=== PATIENT | female | born 1985 | race Caucasian/White ===

== ENCOUNTER 2016-12-29 08:47 | Outpatient (CLI) | payer OTHER | END 2016-12-29 09:51 | disposition home or self-care (01) | LOC: MW.OBCHECK 08:47 → MW.OB 09:00 | CPT/HCPCS: 99282; 99283 ==

== ENCOUNTER 2016-12-29 09:49 | Emergency (ER) | payer OTHER ==
--- NOTE | 2016-12-29 10:04 | EDM.PDOC ---
ED HPI GENERAL MEDICAL PROBLEM - General Chief Complaint: SONG AND DANCE PERFORMER Problem Stated Complaint: PAIN Time Seen by Provider: 12/29/16 09:55 - History of Present Illness INITIAL COMMENTS - FREE TEXT/NARRATIVE: HISTORY AND PHYSICAL: History of present illness: Patient is a 31-year-old white female is approximately 20 weeks with history chronic abdominal pain she's been seen by her SONG AND DANCE PERFORMER for this she is currently on narcotic analgesics for pain she was evaluated and cleared up in labor and delivery and sent back to the emergency department for pain management I discussed with patient at length the limitations in the context of her and that pain management needs to be managed in coordination with her OB doctor to discuss case with who agrees with disposition home and follow up in the office tomorrow Review of systems: As per history of present illness and below otherwise all systems reviewed and negative. Past medical history: As per history of present illness and as reviewed below otherwise noncontributory. Surgical history: As per history of present illness and as reviewed below otherwise noncontributory. Social history: No reported history of drug or alcohol abuse. Family history: As per history of present illness and as reviewed below otherwise noncontributory. Physical exam: HEENT: Atraumatic, normocephalic, pupils reactive, negative for conjunctival pallor or scleral icterus, mucous membranes moist, throat clear, neck supple, nontender, trachea midline. Lungs: Clear to auscultation, breath sounds equal bilaterally, chest nontender. Heart: S1S2, regular, negative for clicks, rubs, or JVD. Abdomen: Soft, nondistended, no localized tenderness in consistent with dates. Negative for masses or hepatosplenomegaly. Negative for costovertebral tenderness. Pelvis: Stable nontender. Genitourinary: Deferred. Rectal: Deferred. Extremities: Atraumatic, negative for cords or calf pain. Neurovascular unremarkable. Neuro: Awake, alert, oriented. Cranial nerves II through XII unremarkable. Cerebellum unremarkable. Motor and sensory unremarkable throughout. Exam nonfocal. Diagnostics: None Therapeutics: None Impression: #1 20 week intrauterine #2 chronic abdominal pain Definitive disposition and diagnosis as appropriate pending reevaluation and review of above. Abdominal Pain Score (Numeric/FACES): 10 - Related Data Allergies Allergy/AdvReac Type Severity Reaction Status Date / Time Latex, Natural Rubber Allergy Itching Verified 12/29/16 09:54 Home Meds: Home Meds Pnv No.122/Iron/Folic Acid [ Multi Tablet] 1 each PO DAILY 10/14/16 [ History] oxyCODONE HCl/Acetaminophen [Percocet 7.5-325 mg Tablet] 1 each PO Q6H PRN #30 tablet 12/15/16 [Rx] Past Medical History HEENT History: Reports: None Gastrointestinal History: Reports: None SONG AND DANCE PERFORMER History: Reports: Polycystic Ovaries Endocrine/Metabolic History: Reports: Obesity/BMI 30+ - Infectious Disease History Infectious Disease History: Reports: Chicken pox - Past Surgical History HEENT Surgical History: Reports: Tonsillectomy GI Surgical History: Reports: Cholecystectomy Other GI Surgeries/Procedures: partial cholecystectomy Female Surgical History: Reports: Other (see below) Other Female Surgeries/Procedures: PCOS Social & Family History - Family History Family Medical History: Noncontributory Respiratory: Reports: Asthma : Reports: UTI, recurrent Musculoskeletal: Reports: Other (see below) Other Musculoskeletal Family History: muscular dystrophy Endocrine/Metabolic: Reports: Diabetes, type II - Tobacco Use Smoking Status *Q: Never Smoker - Caffeine Use Caffeine Use: Reports: Coffee Caffeine Use Comment: 0.5 cup/day - Recreational Drug Use Recreational Drug Use: No ED ROS GENERAL - Review of Systems Review Of Systems: ROS reveals no pertinent complaints other than HPI. ED EXAM, GENERAL - Physical Exam Exam: See Below (See dictation) Course - Vital Signs Last Recorded V/S: Last Vital Signs Temp 36.3 C 12/29/16 09:54 Pulse 107 H 12/29/16 09:54 Resp 22 H 12/29/16 09:54 BP 120/87 12/29/16 09:54 Pulse Ox 97 12/29/16 09:54 Departure - Departure Time of Disposition: 10:02 Disposition: Home, Self-Care 01 Condition: good Clinical Impression: Second trimester , Chronic abdominal pain Forms: ED Department Discharge Additional Instructions: The following information is given to patients seen in the emergency department who are being discharged to home. This information is to outline your options for follow-up care. We provide all patients seen in our emergency department with a follow-up referral. The need for follow-up, as well as the timing and circumstances, are variable depending upon the specifics of your emergency department visit. If you don't have a primary care physician on staff, we will provide you with a referral. We always advise you to contact your personal physician following an emergency department visit to inform them of the circumstance of the visit and for follow-up with them and/or the need for any referrals to a consulting specialist. The emergency department will also refer you to a specialist when appropriate. This referral assures that you have the opportunity for followup care with a specialist. All of these measure are taken in an effort to provide you with optimal care, which includes your followup. Under all circumstances we always encourage you to contact your private physician who remains a resource for coordinating your care. When calling for followup care, please make the office aware that this follow-up is from your recent emergency room visit. If for any reason you are refused follow-up, please contact the [facility] emergency department at and asked to speak to the emergency department charge nurse. Followup OB ell teacher tomorrow as discussed return as needed as discussed
== END 2016-12-29 10:17 | disposition home or self-care (01) ==
LOC: MW.ED 09:49
CPT/HCPCS: 99282; 99283

== ENCOUNTER 2016-12-30 10:50 | Inpatient (IN) | payer OTHER ==
--- NOTE | 2016-12-30 11:07 | EDM.PDOC ---
ED HPI GENERAL MEDICAL PROBLEM - General Chief Complaint: OB TECH Problem Stated Complaint: PAIN Time Seen by Provider: 12/30/16 11:59 - History of Present Illness INITIAL COMMENTS - FREE TEXT/NARRATIVE: HISTORY AND PHYSICAL: History of present illness: Patient is a 31-year-old white female is approximately 20 weeks history chronic abdominal pain that was seen yesterday in the emergency department has had multiple visits to her private doctor who has been prescribed narcotic analgesics that she takes every 6 hours for this chronic pain she is known to have an ovarian cyst this case was discussed yesterday with her OB subassembly assembler who is here today in the office she presents now via paramedics with abdominal pain Review of systems: As per history of present illness and below otherwise all systems reviewed and negative. Past medical history: As per history of present illness and as reviewed below otherwise noncontributory. Surgical history: As per history of present illness and as reviewed below otherwise noncontributory. Social history: No reported history of drug or alcohol abuse. Family history: As per history of present illness and as reviewed below otherwise noncontributory. Physical exam: HEENT: Atraumatic, normocephalic, pupils reactive, negative for conjunctival pallor or scleral icterus, mucous membranes moist, throat clear, neck supple, nontender, trachea midline. Lungs: Clear to auscultation, breath sounds equal bilaterally, chest nontender. Heart: S1S2, regular, negative for clicks, rubs, or JVD. Abdomen: Soft, nondistended, no localized tenderness. Negative for masses or hepatosplenomegaly. Negative for costovertebral tenderness. Pelvis: Stable nontender. Genitourinary: Deferred. Rectal: Deferred. Extremities: Atraumatic, negative for cords or calf pain. Neurovascular unremarkable. Neuro: Awake, alert, oriented. Cranial nerves II through XII unremarkable. Cerebellum unremarkable. Motor and sensory unremarkable throughout. Exam nonfocal. Diagnostics: CBC CMP lipase UA pelvic ultrasound Therapeutics: Normal saline 1 L bolus Impression: #1 20 week intrauterine #2 chronic abdominal pain Definitive disposition and diagnosis as appropriate pending reevaluation and review of above. Pelvic Pain Score (Numeric/FACES): 10 - Related Data Allergies Allergy/AdvReac Type Severity Reaction Status Date / Time Latex, Natural Rubber Allergy Itching Verified 12/29/16 09:54 Home Meds: Home Meds Pnv No.122/Iron/Folic Acid [ Multi Tablet] 1 each PO DAILY 10/14/16 [ History] oxyCODONE HCl/Acetaminophen [Percocet 7.5-325 mg Tablet] 1 each PO Q6H PRN #30 tablet 12/15/16 [Rx] Past Medical History HEENT History: Reports: None Gastrointestinal History: Reports: None Genitourinary History: Reports: None OB TECH History: Reports: Polycystic Ovaries Musculoskeletal History: Reports: None Neurological History: Reports: None Psychiatric History: Reports: None Endocrine/Metabolic History: Reports: Obesity/BMI 30+ Hematologic History: Reports: None Immunologic History: Reports: None Oncologic (Cancer) History: Reports: None Dermatologic History: Reports: None - Infectious Disease History Infectious Disease History: Reports: Chicken pox - Past Surgical History HEENT Surgical History: Reports: Tonsillectomy GI Surgical History: Reports: Cholecystectomy Other GI Surgeries/Procedures: partial cholecystectomy Female Surgical History: Reports: Other (see below) Other Female Surgeries/Procedures: PCOS Social & Family History - Family History Family Medical History: Noncontributory Respiratory: Reports: Asthma : Reports: UTI, recurrent Musculoskeletal: Reports: Other (see below) Other Musculoskeletal Family History: muscular dystrophy Endocrine/Metabolic: Reports: Diabetes, type II - Tobacco Use Smoking Status *Q: Never Smoker Second Hand Smoke Exposure: No - Caffeine Use Caffeine Use: Reports: Coffee Caffeine Use Comment: 0.5 cup/day - Recreational Drug Use Recreational Drug Use: No ED ROS GENERAL - Review of Systems Review Of Systems: ROS reveals no pertinent complaints other than HPI. ED EXAM, GENERAL - Physical Exam Exam: See Below (See dictation) Course - Vital Signs Last Recorded V/S: Last Vital Signs Temp 36.7 C 12/30/16 10:55 Pulse 115 H 12/30/16 10:55 Resp 28 H 12/30/16 10:55 BP 128/88 12/30/16 10:55 Pulse Ox 100 12/30/16 10:55 - Orders/Labs/Meds Orders: Active Orders 24 hr Category Date Time Status AMYLASE [CHEM] Stat Lab 12/30/16 11:07 Received COMPREHENSIVE METABOLIC PN,CMP [CHEM] Stat Lab 12/30/16 11:07 Received LIPASE [CHEM] Stat Lab 12/30/16 11:07 Received TYPE AND SCREEN [BBK] Stat Lab 12/30/16 11:48 Ordered Labs: Laboratory Tests 12/30/16 Range/Units 11:07 WBC 8.94 (4.0-11.0) K/uL RBC 4.42 (4.30-5.90) M/uL Hgb 12.1 (12.0-16.0) g/dL Hct 36.0 (36.0-46.0) % MCV 81.4 (80.0-98.0) fL MCH 27.4 (27.0-32.0) pg MCHC 33.6 (31.0-37.0) g/dL RDW Std Deviation 42.1 (28.0-62.0) fl RDW Coeff of Jennifer 14 (11.0-15.0) % Plt Count 268 (150-400) K/uL MPV 10.00 (7.40-12.00) fL Neut % (Auto) 76.4 (48.0-80.0) % Lymph % (Auto) 16.0 (16.0-40.0) % [place] % (Auto) 7.2 (0.0-15.0) % Eos % (Auto) 0.3 (0.0-7.0) % Baso % (Auto) 0.1 (0.0-1.5) % Neut # 6.8 H (1.4-5.7) K/uL Lymph # 1.4 (0.6-2.4) K/uL [place] # 0.6 (0.0-0.8) K/uL Eos # 0.0 (0.0-0.7) K/uL Baso # 0.0 (0.0-0.1) K/uL Nucleated RBC % 0.0 /100WBC Nucleated RBCs # 0 K/uL Meds: Medications Discontinued Medications Generic Name Dose Route Start Last Admin Trade Name Freq PRN Reason Stop Dose Admin Morphine Sulfate 8 mg 12/30/16 11:44 12/30/16 11:49 Morphine IVPUSH 12/30/16 11:45 8 mg ONETIME ONE Administration Departure - Departure Time of Disposition: 11:59 Disposition: Admitted As Inpatient 66 Condition: good Clinical Impression: Second trimester , Ovarian cyst Forms: ED Department Discharge - My Orders Last 24 Hours: My Active Orders 12/30/16 11:07 AMYLASE [CHEM] Stat COMPREHENSIVE METABOLIC PN,CMP [CHEM] Stat LIPASE [CHEM] Stat 12/30/16 11:48 TYPE AND SCREEN [BBK] Stat - Assessment/Plan Last 24 Hours: My Active Orders 12/30/16 11:07 AMYLASE [CHEM] Stat COMPREHENSIVE METABOLIC PN,CMP [CHEM] Stat LIPASE [CHEM] Stat 12/30/16 11:48 TYPE AND SCREEN [BBK] Stat
[2016-12-30] MEDS ORDERED: Morphine 10 MG/ML Syringe IVPUSH ONE (11:44)
[2016-12-30 11:57] LABS: CHLORIDE,CL 111 mmol/L (98-110); SODIUM,NA 136 mmol/L (136-146)
--- NOTE | 2016-12-30 11:57 | US ---
EXAMINATION: Transabdominal pelvic ultrasound HISTORY: Ovarian cysts COMPARISON: 12/15/2016 TECHNIQUE: Grayscale, color Doppler, and spectral Doppler images obtained transabdominally. FINDINGS: There is a single live intrauterine with a heart rate of 147 bpm. The placenta i s anterior. The fetus is in a cephalic position. Within the left lower quadrant again multiple hypoe choic cysts are noted measuring up to 9 x 10 cm. Grossly unchanged in comparison to the previous ult rasound. IMPRESSION: 1. Single live intrauterine . 2. Several stable prominent left adnexal cysts measuring up to 10 cm.
[2016-12-30] MEDS ORDERED: Ondansetron 4 MG/2 ML SDV IVPUSH ONE (13:45)
[2016-12-30] MEDS ORDERED: Morphine 4 MG/ML Syringe IVPUSH PRN (13:45)
--- NOTE | 2016-12-30 13:57 | PCM.PREANE ---
Preanesthetic Assessment - ANESTHESIA/TRANSFUSION/FAMILY HX Anesthesia/Transfusion History: Prior Anesthesia Family History of Anesthesia Reaction: No Intubation History: Unknown Additional History: Several weeks of pain worsening last few days due to ovarian cyst(s) with possible torsion due to her presentation today. 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 Respiratory: Reports: no symptoms Cardiovascular: Reports: no symptoms GI: Reports: no symptoms Other: Reports: none - PHYSICAL ASSESSMENT O2 Sat by Pulse Oximetry: 98 RR: 16 Vital Signs: Last Vital Signs Temp 98.0 F 12/30/16 10:55 Pulse 78 12/30/16 12:59 Resp 16 12/30/16 12:59 BP 120/70 12/30/16 12:10 Pulse Ox 98 12/30/16 12:59 Height: 5 ft 4.17 in Weight: 310 lb 13.628 oz - LAB Values: Laboratory Last Values WBC 8.94 K/uL (4.0-11.0) 12/30/16 11:07 RBC 4.42 M/uL (4.30-5.90) 12/30/16 11:07 Hgb 12.1 g/dL (12.0-16.0) 12/30/16 11:07 Hct 36.0 % (36.0-46.0) 12/30/16 11:07 MCV 81.4 fL (80.0-98.0) 12/30/16 11:07 MCH 27.4 pg (27.0-32.0) 12/30/16 11:07 MCHC 33.6 g/dL (31.0-37.0) 12/30/16 11:07 RDW Std Deviation 42.1 fl (28.0-62.0) 12/30/16 11:07 RDW Coeff of Jennifer 14 % (11.0-15.0) 12/30/16 11:07 Plt Count 268 K/uL (150-400) 12/30/16 11:07 MPV 10.00 fL (7.40-12.00) 12/30/16 11:07 Neut % (Auto) 76.4 % (48.0-80.0) 12/30/16 11:07 Lymph % (Auto) 16.0 % (16.0-40.0) 12/30/16 11:07 [place] % (Auto) 7.2 % (0.0-15.0) 12/30/16 11:07 Eos % (Auto) 0.3 % (0.0-7.0) 12/30/16 11:07 Baso % (Auto) 0.1 % (0.0-1.5) 12/30/16 11:07 Neut # 6.8 K/uL (1.4-5.7) H 12/30/16 11:07 Lymph # 1.4 K/uL (0.6-2.4) 12/30/16 11:07 [place] # 0.6 K/uL (0.0-0.8) 12/30/16 11:07 Eos # 0.0 K/uL (0.0-0.7) 12/30/16 11:07 Baso # 0.0 K/uL (0.0-0.1) 12/30/16 11:07 Nucleated RBC % 0.0 /100WBC 12/30/16 11:07 Nucleated RBCs # 0 K/uL 12/30/16 11:07 Sodium 136 mmol/L (136-146) 12/30/16 11:07 Potassium 3.8 mmol/L (3.5-5.1) 12/30/16 11:07 Chloride 111 mmol/L (98-110) H 12/30/16 11:07 Carbon Dioxide 13 mmol/L (21-31) L 12/30/16 11:07 BUN 5 mg/dL (6.0-23.0) L 12/30/16 11:07 Creatinine 0.6 mg/dL (0.6-1.5) 12/30/16 11:07 Est Cr Clr Drug Dosing 118.17 mL/min 12/30/16 11:07 Estimated GFR (MDRD) > 60.0 ml/min 12/30/16 11:07 Glucose 135 mg/dL (60-110) H 12/30/16 11:07 Calcium 9.2 mg/dL (8.8-10.8) 12/30/16 11:07 Total Bilirubin 0.3 mg/dL (0.1-1.5) 12/30/16 11:07 AST 11 IU/L (5-40) 12/30/16 11:07 ALT 13 IU/L (8-54) 12/30/16 11:07 Alkaline Phosphatase 54 (40-150) 12/30/16 11:07 Total Protein 7.0 g/dL (6.0-8.0) 12/30/16 11:07 Albumin 3.5 g/dL (3.5-5.0) 12/30/16 11:07 Globulin 3.5 g/dL (2.0-3.5) 12/30/16 11:07 Albumin/Globulin Ratio 1.0 (1.3-2.8) L 12/30/16 11:07 Amylase 37 U/L (10-90) 12/30/16 11:07 Lipase 22 U/L (7-80) 12/30/16 11:07 Blood Type AB POSITIVE 12/30/16 11:59 Antibody Screen NEGATIVE 12/30/16 11:59 - ALLERGIES Allergies/Adverse Reactions: Allergies Allergy/AdvReac Type Severity Reaction Status Date / Time Latex, Natural Rubber Allergy Itching Verified 12/29/16 09:54 PreAnesthesia Questionnaire HEENT History: Reports: None Cardiovascular History: Reports: None Respiratory History: Reports: None Gastrointestinal History: Reports: None Genitourinary History: Reports: None Other Genitourinary History: Ovarian cysts 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: Reports: Polycystic Ovaries Musculoskeletal History: Reports: None Neurological History: Reports: None Psychiatric History: Reports: None Endocrine/Metabolic History: Reports: Obesity/BMI 30+ Hematologic History: Reports: None Immunologic History: Reports: None Oncologic (Cancer) History: Reports: None Dermatologic History: Reports: None - Infectious Disease History Infectious Disease History: Reports: Chicken pox - Past Surgical History HEENT Surgical History: Reports: Tonsillectomy GI Surgical History: Reports: Cholecystectomy Other GI Surgeries/Procedures: partial cholecystectomy Female Surgical History: Reports: Other (see below) Other Female Surgeries/Procedures: PCOS - SUBSTANCE USE Smoking Status *Q: Never Smoker Second Hand Smoke Exposure: No Recreational Drug Use History: No - HOME MEDS Home Medications: Home Meds Pnv No.122/Iron/Folic Acid [ Multi Tablet] 1 each PO DAILY 10/14/16 [ History] oxyCODONE HCl/Acetaminophen [Percocet 7.5-325 mg Tablet] 1 each PO Q6H PRN #30 tablet 12/15/16 [Rx] - CURRENT (IN HOUSE) MEDS Current Meds: Current Medications Morphine Sulfate (Morphine) 5 mg IVPUSH Q4H PRN PRN Reason: Pain Ondansetron HCl (Zofran) 4 mg IVPUSH ONETIME ONE Stop: 12/30/16 13:46 Discontinued Medications Morphine Sulfate (Morphine) 8 mg IVPUSH ONETIME ONE Stop: 12/30/16 11:45 Last Admin: 12/30/16 11:49 Dose: 8 mg
--- NOTE | 2016-12-30 14:01 | PCM.PREANE ---
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: no symptoms Respiratory: Reports: no symptoms Cardiovascular: Reports: no symptoms GI: Reports: no symptoms Other: Reports: none - PHYSICAL ASSESSMENT O2 Sat by Pulse Oximetry: 98 RR: 16 Vital Signs: Last Vital Signs Temp 98.0 F 12/30/16 10:55 Pulse 78 12/30/16 12:59 Resp 16 12/30/16 13:57 BP 120/70 12/30/16 12:10 Pulse Ox 98 12/30/16 13:57 Height: 5 ft 4.17 in Weight: 310 lb 13.628 oz ASA Class: 3E Mental Status: alert & oriented x3 Airway Class: Mallampati = 1 Dentition: Reports: normal dentition Thyro-Mental Finger Breadths: 3 Mouth Opening Finger Breadths: 3 ROM/Head Extension: full Respiratory Status: lungs clear to auscultation bilaterally Cardiovascular Status: regular rate & rhythm, no murmur, blood pressure WNL - LAB Values: Laboratory Last Values WBC 8.94 K/uL (4.0-11.0) 12/30/16 11:07 RBC 4.42 M/uL (4.30-5.90) 12/30/16 11:07 Hgb 12.1 g/dL (12.0-16.0) 12/30/16 11:07 Hct 36.0 % (36.0-46.0) 12/30/16 11:07 MCV 81.4 fL (80.0-98.0) 12/30/16 11:07 MCH 27.4 pg (27.0-32.0) 12/30/16 11:07 MCHC 33.6 g/dL (31.0-37.0) 12/30/16 11:07 RDW Std Deviation 42.1 fl (28.0-62.0) 12/30/16 11:07 RDW Coeff of Jennifer 14 % (11.0-15.0) 12/30/16 11:07 Plt Count 268 K/uL (150-400) 12/30/16 11:07 MPV 10.00 fL (7.40-12.00) 12/30/16 11:07 Neut % (Auto) 76.4 % (48.0-80.0) 12/30/16 11:07 Lymph % (Auto) 16.0 % (16.0-40.0) 12/30/16 11:07 [place] % (Auto) 7.2 % (0.0-15.0) 12/30/16 11:07 Eos % (Auto) 0.3 % (0.0-7.0) 12/30/16 11:07 Baso % (Auto) 0.1 % (0.0-1.5) 12/30/16 11:07 Neut # 6.8 K/uL (1.4-5.7) H 12/30/16 11:07 Lymph # 1.4 K/uL (0.6-2.4) 12/30/16 11:07 [place] # 0.6 K/uL (0.0-0.8) 12/30/16 11:07 Eos # 0.0 K/uL (0.0-0.7) 12/30/16 11:07 Baso # 0.0 K/uL (0.0-0.1) 12/30/16 11:07 Nucleated RBC % 0.0 /100WBC 12/30/16 11:07 Nucleated RBCs # 0 K/uL 12/30/16 11:07 Sodium 136 mmol/L (136-146) 12/30/16 11:07 Potassium 3.8 mmol/L (3.5-5.1) 12/30/16 11:07 Chloride 111 mmol/L (98-110) H 12/30/16 11:07 Carbon Dioxide 13 mmol/L (21-31) L 12/30/16 11:07 BUN 5 mg/dL (6.0-23.0) L 12/30/16 11:07 Creatinine 0.6 mg/dL (0.6-1.5) 12/30/16 11:07 Est Cr Clr Drug Dosing 118.17 mL/min 12/30/16 11:07 Estimated GFR (MDRD) > 60.0 ml/min 12/30/16 11:07 Glucose 135 mg/dL (60-110) H 12/30/16 11:07 Calcium 9.2 mg/dL (8.8-10.8) 12/30/16 11:07 Total Bilirubin 0.3 mg/dL (0.1-1.5) 12/30/16 11:07 AST 11 IU/L (5-40) 12/30/16 11:07 ALT 13 IU/L (8-54) 12/30/16 11:07 Alkaline Phosphatase 54 (40-150) 12/30/16 11:07 Total Protein 7.0 g/dL (6.0-8.0) 12/30/16 11:07 Albumin 3.5 g/dL (3.5-5.0) 12/30/16 11:07 Globulin 3.5 g/dL (2.0-3.5) 12/30/16 11:07 Albumin/Globulin Ratio 1.0 (1.3-2.8) L 12/30/16 11:07 Amylase 37 U/L (10-90) 12/30/16 11:07 Lipase 22 U/L (7-80) 12/30/16 11:07 Blood Type AB POSITIVE 12/30/16 11:59 Antibody Screen NEGATIVE 12/30/16 11:59 - ALLERGIES Allergies/Adverse Reactions: Allergies Allergy/AdvReac Type Severity Reaction Status Date / Time Latex, Natural Rubber Allergy Itching Verified 12/29/16 09:54 - BLOOD Blood Available: No - ANESTHESIA PLAN Free Text/Narrative:: Laparoscopy: will need general anesthetic; risks and benefits discussed by me and by Dr. Wilks earlier....she was admitted through the ER...see evaluation. 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: Polycystic Ovaries Musculoskeletal History: Reports: None Neurological History: Reports: None Psychiatric History: Reports: None Endocrine/Metabolic History: Reports: Obesity/BMI 30+ Hematologic History: Reports: None Immunologic History: Reports: None Oncologic (Cancer) History: Reports: None Dermatologic History: Reports: None - Infectious Disease History Infectious Disease History: Reports: Chicken pox - Past Surgical History HEENT Surgical History: Reports: Tonsillectomy GI Surgical History: Reports: Cholecystectomy Other GI Surgeries/Procedures: partial cholecystectomy Female Surgical History: Reports: Other (see below) Other Female Surgeries/Procedures: PCOS - SUBSTANCE USE Smoking Status *Q: Never Smoker Second Hand Smoke Exposure: No Recreational Drug Use History: No - HOME MEDS Home Medications: Home Meds Pnv No.122/Iron/Folic Acid [ Multi Tablet] 1 each PO DAILY 10/14/16 [ History] oxyCODONE HCl/Acetaminophen [Percocet 7.5-325 mg Tablet] 1 each PO Q6H PRN #30 tablet 12/15/16 [Rx] - CURRENT (IN HOUSE) MEDS Current Meds: Current Medications Morphine Sulfate (Morphine) 5 mg IVPUSH Q4H PRN PRN Reason: Pain Discontinued Medications Morphine Sulfate (Morphine) 8 mg IVPUSH ONETIME ONE Stop: 12/30/16 11:45 Last Admin: 12/30/16 11:49 Dose: 8 mg Ondansetron HCl (Zofran) 4 mg IVPUSH ONETIME ONE Stop: 12/30/16 13:46
[2016-12-30] MEDS ORDERED: Rocuronium 10 MG/ML 10 ML Syringe ONE (14:16)
[2016-12-30] MEDS ORDERED: fentaNYL 100 MCG/2 ML SDV ONE ×3 (14:16→16:45)
[2016-12-30] MEDS ORDERED: Propofol 200 MG/20 ML SDV ONE (14:16)
[2016-12-30] MEDS ORDERED: Lidocaine 2% 5 ML SDV ONE (14:16)
[2016-12-30] MEDS ORDERED: ePHEDrine 50 MG/ML SDV ONE (15:03)
[2016-12-30] MEDS ORDERED: Phenylephrine/Normal Saline 100 MCG/ML 10 ML Syringe ONE (15:03)
[2016-12-30] MEDS ORDERED: Morphine 10 MG/ML Syringe ONE (15:23)
[2016-12-30] MEDS ORDERED: Phenylephrine 1% 10 MG/ML SDV ONE (15:26)
[2016-12-30] MEDS ORDERED: Neostigmine Methylsulfate 1 MG/ML 5 ML Syringe ONE (15:52)
[2016-12-30] MEDS ORDERED: Ondansetron 4 MG/2 ML SDV ONE (16:02)
[2016-12-30] MEDS ORDERED: Octyl 2-Cyanoacrylate 1 Tube ONE (16:06)
[2016-12-30] MEDS ORDERED: Ketorolac 30 MG/ML SDV IVPUSH PRN (16:20)
[2016-12-30] MEDS ORDERED: Ketorolac 30 MG/ML SDV IVPUSH ONE (16:20)
[2016-12-30] MEDS ORDERED: Promethazine 25 MG/ML SDV IM PRN (16:20)
--- NOTE | 2016-12-30 17:15 | PCM.POSTAN ---
POST ANESTHESIA ASSESSMENT - MENTAL STATUS Mental Status: alert (Pt currently resting quietly, not appearing to be in pain. Does report pain when awake. Has been given substantial doses of morphine (18 mg) and fentanyl (300 mcg) over past 2 hours. Will transfer to floor now. Dr. Wilks to manage pain control while in hospital.), oriented - RESPIRATORY Respiratory Status: respiratory rate WNL, airway patent, O2 saturation stable - CARDIOVASCULAR CV Status: pulse rate WNL, blood pressure stable - GASTROINTESTINAL GI Status: no symptoms - POST OP HYDRATION Hydration Status: adequate & stable
[2016-12-30] MEDS: Morphine 4 MG/ML Syringe IVPUSH PRN (18:40)
--- NOTE | 2016-12-30 20:44 | PCM48HPAN ---
Post Anesthesia Note - EVALUATION WITHIN 48HRS OF ANESTHETIC Vital Signs in Normal Range: Yes Patient Participated in Evaluation: Yes Respiratory Function Stable: Yes Airway Patent: Yes Cardiovascular Function Stable: Yes Hydration Status Stable: Yes Pain Control Satisfactory: Yes Nausea and Vomiting Control Satisfactory: Yes Mental Status Recovered: Yes - COMMENTS/OBSERVATIONS Free Text/Narrative:: Pt denies problems with anesthetic. Does report incisional pain. Dr. Wilks managing pain during inpatient stay.
[2016-12-30] MEDS: Acetaminophen/oxyCODONE 325-5 MG Tab PO PRN (22:51)
[2016-12-31] MEDS: Lactated Ringers 1,000 ML IV SCH ×2 (00:12→08:42)
[2016-12-31] MEDS: Acetaminophen/oxyCODONE 325-5 MG Tab PO PRN ×4 (03:56→18:57)
--- NOTE | 2016-12-31 10:32 | PCM.SURGPN ---
- General Info Date of Service: 12/31/16 POD#: 1 Functional Status: Reports: pain controlled - Review of Systems General: Reports: no symptoms HEENT: Reports: no symptoms Pulmonary: Reports: no symptoms Cardiovascular: Reports: no symptoms Gastrointestinal: Reports: No symptoms Genitourinary: Reports: no symptoms Musculoskeletal: Reports: no symptoms Skin: Reports: no symptoms Neurological: Reports: no symptoms Psychiatric: Reports: no symptoms - Patient Data Vitals - most recent: Last Vital Signs Temp 36.5 C 12/31/16 03:44 Pulse 116 H 12/31/16 03:44 Resp 16 12/31/16 03:44 BP 116/74 12/31/16 03:44 Pulse Ox 95 12/31/16 03:44 Weight - most recent: 141 kg I&O - last 24 hours: Intake & Output 12/30/16 12/31/16 12/31/16 22:59 06:59 14:59 Intake Total 1200 1050 999 Output Total 570 1490 Balance 630 -440 999 Lab Results last 24 hrs: Laboratory Results - last 24 hr 12/31/16 Range/Units 06:00 WBC 9.52 (4.0-11.0) K/uL RBC 3.42 L (4.30-5.90) M/uL Hgb 9.5 L (12.0-16.0) g/dL Hct 28.6 L (36.0-46.0) % MCV 83.6 (80.0-98.0) fL MCH 27.8 (27.0-32.0) pg MCHC 33.2 (31.0-37.0) g/dL RDW Std Deviation 44.4 (28.0-62.0) fl RDW Coeff of Jennifer 15 (11.0-15.0) % Plt Count 218 (150-400) K/uL MPV 9.80 (7.40-12.00) fL Neut % (Auto) 79.7 (48.0-80.0) % Lymph % (Auto) 12.2 L (16.0-40.0) % [place] % (Auto) 7.8 (0.0-15.0) % Eos % (Auto) 0.2 (0.0-7.0) % Baso % (Auto) 0.1 (0.0-1.5) % Neut # 7.6 H (1.4-5.7) K/uL Lymph # 1.2 (0.6-2.4) K/uL [place] # 0.7 (0.0-0.8) K/uL Eos # 0.0 (0.0-0.7) K/uL Baso # 0.0 (0.0-0.1) K/uL Nucleated RBC % 0.0 /100WBC Nucleated RBCs # 0 K/uL Med Orders - Current: Current Medications Lactated Ringer's (Ringers, Lactated) 1,000 mls @ 125 mls/hr IV ASDIRECTED SALOME Last Admin: 12/31/16 08:42 Dose: 125 mls/hr Morphine Sulfate (Morphine) 4 mg IVPUSH Q2H PRN PRN Reason: Pain (severe 7-10) Last Admin: 12/30/16 18:40 Dose: 4 mg Ondansetron HCl (Zofran) 4 mg IVPUSH Q6H PRN PRN Reason: Nausea/Vomiting Oxycodone/Acetaminophen (Percocet 325-5 Mg) 1 tab PO Q4H PRN PRN Reason: Pain (moderate 4-6) Oxycodone/Acetaminophen (Percocet 325-5 Mg) 2 tab PO Q4H PRN PRN Reason: Pain (moderate 4-6) Last Admin: 12/31/16 07:59 Dose: 2 tab Promethazine HCl (Phenergan) 25 mg IM Q6H PRN PRN Reason: Nausea/Vomiting Discontinued Medications Ephedrine Sulfate (Ephedrine Sulfate) Confirm Administered Dose 50 mg .ROUTE .STK-MED ONE Stop: 12/30/16 15:04 Fentanyl (Sublimaze) Confirm Administered Dose 100 mcg .ROUTE .STK-MED ONE Stop: 12/30/16 14:17 Fentanyl (Sublimaze) Confirm Administered Dose 100 mcg .ROUTE .STK-MED ONE Stop: 12/30/16 16:04 Fentanyl (Sublimaze) Confirm Administered Dose 100 mcg .ROUTE .STK-MED ONE Stop: 12/30/16 16:46 Last Admin: 12/30/16 17:31 Dose: Not Given Glycopyrrolate (Robinul) Confirm Administered Dose 1 mg .ROUTE .STK-MED ONE Stop: 12/30/16 15:53 Ketorolac Tromethamine (Toradol) 30 mg IVPUSH ONETIME ONE Stop: 12/30/16 16:21 Last Admin: 12/30/16 17:32 Dose: Not Given Ketorolac Tromethamine (Toradol) 30 mg IVPUSH Q6H PRN PRN Reason: Pain (severe 7-10) Stop: 01/04/17 16:22 Last Admin: 12/30/16 19:48 Dose: 30 mg Lidocaine (Xylocaine-Mpf 2%) Confirm Administered Dose 5 ml .ROUTE .STK-MED ONE Stop: 12/30/16 14:17 Morphine Sulfate (Morphine) 8 mg IVPUSH ONETIME ONE Stop: 12/30/16 11:45 Last Admin: 12/30/16 11:49 Dose: 8 mg Morphine Sulfate (Morphine) 5 mg IVPUSH Q4H PRN PRN Reason: Pain Last Admin: 12/30/16 13:58 Dose: 5 mg Morphine Sulfate (Morphine) Confirm Administered Dose 10 mg .ROUTE .STK-MED ONE Stop: 12/30/16 15:24 Neostigmine Methylsulfate (Neostigmine) Confirm Administered Dose 5 mg .ROUTE .STK-MED ONE Stop: 12/30/16 15:53 Octyl Cyanoacrylate (Dermabond Advance) Confirm Administered Dose 1 applic .ROUTE .STK-MED ONE Stop: 12/30/16 16:07 Ondansetron HCl (Zofran) 4 mg IVPUSH ONETIME ONE Stop: 12/30/16 13:46 Last Admin: 12/30/16 13:58 Dose: 4 mg Ondansetron HCl (Zofran) Confirm Administered Dose 4 mg .ROUTE .STK-MED ONE Stop: 12/30/16 16:03 Phenylephrine HCl (Phenylephrine In Ns 100 Mcg/Ml) Confirm Administered Dose 1 mg .ROUTE .STK-MED ONE Stop: 12/30/16 15:04 Phenylephrine HCl (Abilio-Synephrine) Confirm Administered Dose 10 mg .ROUTE .STK- MED ONE Stop: 12/30/16 15:27 Propofol (Diprivan 20 Ml) Confirm Administered Dose 200 mg .ROUTE .STK-MED ONE Stop: 12/30/16 14:17 Rocuronium [place] (Zemuron) Confirm Administered Dose 100 mg .ROUTE .STK-MED ONE Stop: 12/30/16 14:17 - Exam Wound/Incisions: healing well General: alert, oriented HEENT: Pupils equal Neck: supple Lungs: Clear to auscultation, Normal respiratory effort Cardiovascular: regular rate, regular rhythm Abdomen: bowel sounds present, soft, no tenderness, no distension Extremities: no edema Skin: warm, dry, intact Neurological: no new focal deficit Psy/Mental Status: alert, normal affect, normal mood - Problem List Review Problem List Initiated/Reviewed/Updated: Yes - My Orders Last 24 Hours: Active Orders 24 hr Category Date Time Status Patient Status [ADT] Routine ADT 12/30/16 16:22 Active Antiembolic Devices [RC] Q12H Care 12/30/16 16:22 Active Communication Order [RC] ROUTINE Care 12/30/16 22:05 Active Communication Order [RC] ROUTINE Care 12/31/16 10:10 Active Notify Provider Vital Signs [RC] ASDIRECTED Care 12/30/16 16:22 Active RT Incentive Spirometry [RC] Q2HWA Care 12/30/16 16:22 Active Up With Assistance [RC] PER UNIT ROUTINE Care 12/30/16 16:22 Active Up ad Yara [RC] PER UNIT ROUTINE Care 12/30/16 16:22 Active Urinary Catheter Removal [RC] Per Unit Routine Care 12/30/16 16:22 Active Vital Signs [RC] Q4H Care 12/30/16 16:22 Active Full Liquid Diet [DIET] Diet 12/31/16 Lunch Active NPO [Nothing Per Oral Diet] [DIET] Diet 12/30/16 Dinner Active OB Ltd 1 or More Fetus [US] Routine Exams 12/30/16 16:15 Taken OB Ltd 1 or More Fetus [US] Routine Exams 12/31/16 09:00 Ordered BASIC METABOLIC PANEL,BMP [CHEM] AM Lab 12/31/16 16:30 Ordered Acetaminophen/oxyCODONE [Percocet 325-5 MG] Med 12/30/16 16:20 Active 1 tab PO Q4H PRN Acetaminophen/oxyCODONE [Percocet 325-5 MG] Med 12/30/16 16:20 Active 2 tab PO Q4H PRN Lactated Ringers [Ringers, Lactated] 1,000 ml Med 12/30/16 16:30 Active IV ASDIRECTED Morphine Med 12/30/16 16:20 Active 4 mg IVPUSH Q2H PRN Ondansetron [Zofran] Med 12/30/16 16:20 Active 4 mg IVPUSH Q6H PRN Promethazine [Phenergan] Med 12/30/16 16:20 Active 25 mg IM Q6H PRN Peripheral IV Discontinue [OM.PC] Routine Oth 12/30/16 16:22 Ordered Sequential Compression Device [OM.PC] Per Unit Routine Oth 12/30/16 16:22 Ordered Resuscitation Status Routine Resus Stat 12/30/16 16:20 Ordered Medication Orders Lactated Ringer's (Ringers, Lactated) 1,000 mls @ 125 mls/hr IV ASDIRECTED SALOME Last Admin: 12/31/16 08:42 Dose: 125 mls/hr Infusion: 12/31/16 08:12 Dose: 125 mls/hr Admin: 12/31/16 00:12 Dose: 125 mls/hr Morphine Sulfate (Morphine) 4 mg IVPUSH Q2H PRN PRN Reason: Pain (severe 7-10) Last Admin: 12/30/16 18:40 Dose: 4 mg Ondansetron HCl (Zofran) 4 mg IVPUSH Q6H PRN PRN Reason: Nausea/Vomiting Oxycodone/Acetaminophen (Percocet 325-5 Mg) 1 tab PO Q4H PRN PRN Reason: Pain (moderate 4-6) Oxycodone/Acetaminophen (Percocet 325-5 Mg) 2 tab PO Q4H PRN PRN Reason: Pain (moderate 4-6) Last Admin: 12/31/16 07:59 Dose: 2 tab Admin: 12/31/16 03:56 Dose: 2 tab Admin: 12/30/16 22:51 Dose: 2 tab Promethazine HCl (Phenergan) 25 mg IM Q6H PRN PRN Reason: Nausea/Vomiting - Assessment Assessment (Free Text/Narrative):: doing well will start on lig, diet advance to regular as tolerated. OB ultrasound show active fetus HR 143 adequate fluid and the placenta is ok. - Plan Plan (Free Text/Narrative):: Regular care.
[2016-12-31] MEDS: Morphine 4 MG/ML Syringe IVPUSH PRN ×2 (10:59→20:58)
[2016-12-31 16:51] LABS: CHLORIDE,CL 110 mmol/L (98-110); SODIUM,NA 135 mmol/L (136-146)
[2016-12-31] MEDS: Ondansetron 4 MG/2 ML SDV IVPUSH PRN (17:18)
--- NOTE | 2016-12-31 18:01 | PCM48HPAN ---
Post Anesthesia Note - EVALUATION WITHIN 48HRS OF ANESTHETIC Vital Signs in Normal Range: Yes Patient Participated in Evaluation: Yes Respiratory Function Stable: Yes Airway Patent: Yes Cardiovascular Function Stable: Yes Hydration Status Stable: Yes Pain Control Satisfactory: Yes Nausea and Vomiting Control Satisfactory: Yes Mental Status Recovered: Yes - COMMENTS/OBSERVATIONS Free Text/Narrative:: Patient remarkabyl comfortable compared to 24 hours ago. ultrasound was being done this AM but she was able to talk and tolerate procedure. she was also hungry; no complaints about the care yesterday.
[2017-01-01] MEDS: Morphine 4 MG/ML Syringe IVPUSH PRN (04:47)
[2017-01-01] MEDS: Ondansetron 4 MG/2 ML SDV IVPUSH PRN ×2 (04:55→12:58)
[2017-01-01] MEDS: Acetaminophen/oxyCODONE 325-5 MG Tab PO PRN ×4 (05:48→22:25)
--- NOTE | 2017-01-01 09:38 | PCM.SURGPN ---
- General Info Date of Service: 01/01/17 POD#: 2 Functional Status: Reports: pain controlled - Review of Systems General: Reports: no symptoms HEENT: Reports: no symptoms Pulmonary: Reports: no symptoms Cardiovascular: Reports: no symptoms Gastrointestinal: Reports: No symptoms Genitourinary: Reports: no symptoms Musculoskeletal: Reports: no symptoms Skin: Reports: no symptoms Neurological: Reports: no symptoms Psychiatric: Reports: no symptoms - Patient Data Vitals - most recent: Last Vital Signs Temp 36.1 C 01/01/17 08:00 Pulse 104 H 01/01/17 08:00 Resp 22 H 01/01/17 08:00 BP 115/59 L 01/01/17 08:00 Pulse Ox 96 01/01/17 08:00 Weight - most recent: 141 kg I&O - last 24 hours: Intake & Output 12/31/16 01/01/17 01/01/17 22:59 06:59 14:59 Intake Total 1799 550 Output Total 850 1025 Balance 949 -475 Lab Results last 24 hrs: Laboratory Results - last 24 hr 12/31/16 Range/Units 16:25 Sodium 135 L (136-146) mmol/L Potassium 3.8 (3.5-5.1) mmol/L Chloride 110 (98-110) mmol/L Carbon Dioxide 17 L (21-31) mmol/L BUN 4 L (6.0-23.0) mg/dL Creatinine 0.6 (0.6-1.5) mg/dL Est Cr Clr Drug Dosing 118.17 mL/min Estimated GFR (MDRD) > 60.0 ml/min Glucose 112 H (60-110) mg/dL Calcium 8.4 L (8.8-10.8) mg/dL Med Orders - Current: Current Medications Lactated Ringer's (Ringers, Lactated) 1,000 mls @ 125 mls/hr IV ASDIRECTED SALOME Last Admin: 12/31/16 08:42 Dose: 125 mls/hr Morphine Sulfate (Morphine) 4 mg IVPUSH Q2H PRN PRN Reason: Pain (severe 7-10) Last Admin: 01/01/17 04:47 Dose: 4 mg Ondansetron HCl (Zofran) 4 mg IVPUSH Q6H PRN PRN Reason: Nausea/Vomiting Last Admin: 01/01/17 04:55 Dose: 4 mg Oxycodone/Acetaminophen (Percocet 325-5 Mg) 1 tab PO Q4H PRN PRN Reason: Pain (moderate 4-6) Oxycodone/Acetaminophen (Percocet 325-5 Mg) 2 tab PO Q4H PRN PRN Reason: Pain (moderate 4-6) Last Admin: 01/01/17 05:48 Dose: 2 tab Promethazine HCl (Phenergan) 25 mg IM Q6H PRN PRN Reason: Nausea/Vomiting Discontinued Medications Ephedrine Sulfate (Ephedrine Sulfate) Confirm Administered Dose 50 mg .ROUTE .STK-MED ONE Stop: 12/30/16 15:04 Fentanyl (Sublimaze) Confirm Administered Dose 100 mcg .ROUTE .STK-MED ONE Stop: 12/30/16 14:17 Fentanyl (Sublimaze) Confirm Administered Dose 100 mcg .ROUTE .STK-MED ONE Stop: 12/30/16 16:04 Fentanyl (Sublimaze) Confirm Administered Dose 100 mcg .ROUTE .STK-MED ONE Stop: 12/30/16 16:46 Last Admin: 12/30/16 17:31 Dose: Not Given Glycopyrrolate (Robinul) Confirm Administered Dose 1 mg .ROUTE .STK-MED ONE Stop: 12/30/16 15:53 Ketorolac Tromethamine (Toradol) 30 mg IVPUSH ONETIME ONE Stop: 12/30/16 16:21 Last Admin: 12/30/16 17:32 Dose: Not Given Ketorolac Tromethamine (Toradol) 30 mg IVPUSH Q6H PRN PRN Reason: Pain (severe 7-10) Stop: 01/04/17 16:22 Last Admin: 12/30/16 19:48 Dose: 30 mg Lidocaine (Xylocaine-Mpf 2%) Confirm Administered Dose 5 ml .ROUTE .STK-MED ONE Stop: 12/30/16 14:17 Morphine Sulfate (Morphine) 8 mg IVPUSH ONETIME ONE Stop: 12/30/16 11:45 Last Admin: 12/30/16 11:49 Dose: 8 mg Morphine Sulfate (Morphine) 5 mg IVPUSH Q4H PRN PRN Reason: Pain Last Admin: 12/30/16 13:58 Dose: 5 mg Morphine Sulfate (Morphine) Confirm Administered Dose 10 mg .ROUTE .STK-MED ONE Stop: 12/30/16 15:24 Neostigmine Methylsulfate (Neostigmine) Confirm Administered Dose 5 mg .ROUTE .STK-MED ONE Stop: 12/30/16 15:53 Octyl Cyanoacrylate (Dermabond Advance) Confirm Administered Dose 1 applic .ROUTE .STK-MED ONE Stop: 12/30/16 16:07 Ondansetron HCl (Zofran) 4 mg IVPUSH ONETIME ONE Stop: 12/30/16 13:46 Last Admin: 12/30/16 13:58 Dose: 4 mg Ondansetron HCl (Zofran) Confirm Administered Dose 4 mg .ROUTE .STK-MED ONE Stop: 12/30/16 16:03 Phenylephrine HCl (Phenylephrine In Ns 100 Mcg/Ml) Confirm Administered Dose 1 mg .ROUTE .STK-MED ONE Stop: 12/30/16 15:04 Phenylephrine HCl (Abilio-Synephrine) Confirm Administered Dose 10 mg .ROUTE .STK- MED ONE Stop: 12/30/16 15:27 Propofol (Diprivan 20 Ml) Confirm Administered Dose 200 mg .ROUTE .STK-MED ONE Stop: 12/30/16 14:17 Rocuronium [place] (Zemuron) Confirm Administered Dose 100 mg .ROUTE .STK-MED ONE Stop: 12/30/16 14:17 - Exam Wound/Incisions: healing well General: alert, oriented HEENT: Pupils equal Neck: supple Lungs: Clear to auscultation, Normal respiratory effort Cardiovascular: regular rate, regular rhythm Abdomen: bowel sounds present, soft, no tenderness, no distension Extremities: no edema Skin: warm, dry, intact Neurological: no new focal deficit Psy/Mental Status: alert, normal affect, normal mood - Problem List Review Problem List Initiated/Reviewed/Updated: Yes - My Orders Last 24 Hours: Active Orders 24 hr Category Date Time Status Communication Order [RC] ROUTINE Care 12/31/16 10:10 Active Regular Diet [DIET] Diet 01/01/17 Breakfast Active OB Ltd 1 or More Fetus [US] Routine Exams 12/31/16 09:00 Taken Medication Orders Lactated Ringer's (Ringers, Lactated) 1,000 mls @ 125 mls/hr IV ASDIRECTED SALOME Last Admin: 12/31/16 08:42 Dose: 125 mls/hr Infusion: 12/31/16 08:12 Dose: 125 mls/hr Admin: 12/31/16 00:12 Dose: 125 mls/hr Morphine Sulfate (Morphine) 4 mg IVPUSH Q2H PRN PRN Reason: Pain (severe 7-10) Last Admin: 01/01/17 04:47 Dose: 4 mg Admin: 12/31/16 20:58 Dose: 4 mg Admin: 12/31/16 10:59 Dose: 4 mg Admin: 12/30/16 18:40 Dose: 4 mg Ondansetron HCl (Zofran) 4 mg IVPUSH Q6H PRN PRN Reason: Nausea/Vomiting Last Admin: 01/01/17 04:55 Dose: 4 mg Admin: 12/31/16 17:18 Dose: 4 mg Oxycodone/Acetaminophen (Percocet 325-5 Mg) 1 tab PO Q4H PRN PRN Reason: Pain (moderate 4-6) Oxycodone/Acetaminophen (Percocet 325-5 Mg) 2 tab PO Q4H PRN PRN Reason: Pain (moderate 4-6) Last Admin: 01/01/17 05:48 Dose: 2 tab Admin: 12/31/16 18:57 Dose: 2 tab Admin: 12/31/16 13:06 Dose: 2 tab Admin: 12/31/16 07:59 Dose: 2 tab Admin: 12/31/16 03:56 Dose: 2 tab Admin: 12/30/16 22:51 Dose: 2 tab Promethazine HCl (Phenergan) 25 mg IM Q6H PRN PRN Reason: Nausea/Vomiting - Assessment Assessment (Free Text/Narrative):: PT is having a bm. Doing well - Plan Plan (Free Text/Narrative):: Pt willgo home in am.
[2017-01-02] MEDS: Acetaminophen/oxyCODONE 325-5 MG Tab PO PRN ×2 (04:29→10:15)
--- NOTE | 2017-01-02 06:30 | OR ---
SURGEON: Wolfgang Wilks MD DATE OF PROCEDURE: PREOPERATIVE DIAGNOSES: Intrauterine 19 to 20 weeks, pelvic pain, left ovarian cyst with strong possibility of torsion. POSTOPERATIVE DIAGNOSES: Intrauterine 19 to 20 weeks, pelvic pain, left ovarian cyst with strong possibility of torsion. OPERATION PERFORMED: Diagnostic laparoscopy, followed by exploratory laparotomy and repair of accidental uterine laceration and left salpingo-oophorectomy. ESOL INSTRUCTOR: Dr. Corcoran. ANESTHESIA: General endotracheal intubation by Dr. Gudelia Zaragoza. ESTIMATED BLOOD LOSS: 150 to 200 mL. COMPLICATION: Accidental laceration of the uterus due to attempted laparoscopy. INDICATION: This patient is 19 to 20 weeks, she had severe abdominal pain and pelvic pain. She had multiple visits to the emergency room where at one time she required admission to the hospital for control of this pelvic pain multiple large right ovarian cysts. There was a possibility of torsion before, but it was not ascertained. However, she came to the emergency room today with severe abdominal pain. Ultrasound was performed which shows the same size cyst in the left ovary and with a strong possibility of torsion this time. Because of the patient's pain, a decision was made to manage the patient surgically. We are going to try and attempt to do diagnostic laparoscopy first and possible laparotomy. The patient consented for the procedure. PROCEDURE IN DETAIL: The patient was brought to the OR, properly identified, and after adequate level of general anesthesia, the patient was placed in lithotomy position with an access to the abdomen and the vagina. The patient prepped and draped in sterile fashion as usual with a Redman catheter in the bladder. Stab wound done beneath the umbilicus. The Veress needle was placed in the peritoneal cavity and that cavity was insufflated with carbon dioxide. Trocars were entered into the peritoneal cavity using the Visiport technique. Once we are in the peritoneal cavity, it became apparent there was a torsion of the left tubes and ovary, and there was a laceration to the uterus, and it was bleeding with the possibility of fibroid amniotic fluid leak and it was felt at this time, there was no way we could accomplish the procedures laparoscopically, so we abandoned the laparoscopic procedure, and we proceeded to the laparotomy. Low-transverse skin incision was suprapubically done. The Peter's fascia, rectus fascia was opened in direction of the incision and then the rectus muscle was retracted and the inferior epigastric vessel was identified, clamped with 90 degrees clamp, transected and suture ligated and the rectus muscle was transected at the midline, thus achieving Maylard abdominal incision. Once this was done, the peritoneal cavity was entered transversely and at this time the attention was paid to the loculation of the uterus. There was minimum vaginal bleeding. There was minimum bleeding from that laceration, there was no leaking of amniotic fluid and that was confirmed, so I proceeded to put a [id number] suture above that small laceration to stop the small oozing from the uterus. Once we placed that, the bleeding completely stopped. Next, attention was paid to the left tubes and ovary where there are multiple cysts and a complete torsion. The tubes and ovary has already turned black and it was felt that it is not to salvage the ovary. So, I proceeded to do the left salpingo- oophorectomy and that is by going under the mesoappendix and applying Cristine to base of the appendix and transected and then the proximal part of the tubes near the uterus was clamped with the transected and both the tubes and ovary with the cyst in total is removed then the base of these clamps tied twice with 2-0 Vicryl and then inspection of the entire operative field shows there was no oozing, no bleeding. Then inspection of the uterus shows there was no bleeding form from the small laceration and there was no oozing of amniotic fluid. Satisfied with these findings, the procedure ended. The uterus was placed back in the peritoneal cavity and that cavity evacuated completely from all blood and blood clot, and closed with 3-0 Vicryl continuous and then the rectus fascia was closed with #1 PDS continuous. placed in the subcuticular fascia because the patient had a BMI of 55 and there is a possibility of infection and the Peter's fascia was closed with 3-0 Vicryl continuous and the skin was closed with skin clips, Insorb. Instrument and sponge count were correct. The patient tolerated the procedure well, went to recovery room in stable general condition. In the recovery room, the patient to have a limited OB ultrasound, heart rate is documented at 139 to 141, and movement was documented, the placenta was visualized, there was no evidence of abruption or any abnormality, satisfied with these finding of the ultrasound, the procedure was ended. The instrument and sponge count was correct. The patient tolerated the procedure well, went to recovery room in stable general condition. ANN MARIE / APOLINAR /[id number]
[2017-01-02 09:35] VITALS: BP 125/62
--- NOTE | 2017-01-02 10:06 | PCM.SURGPN ---
- General Info Date of Service: 01/02/17 POD#: 3 Functional Status: Reports: pain controlled - Review of Systems General: Reports: no symptoms HEENT: Reports: no symptoms Pulmonary: Reports: no symptoms Cardiovascular: Reports: no symptoms Gastrointestinal: Reports: No symptoms Genitourinary: Reports: no symptoms Musculoskeletal: Reports: no symptoms Skin: Reports: no symptoms Neurological: Reports: no symptoms Psychiatric: Reports: no symptoms - Patient Data Vitals - most recent: Last Vital Signs Temp 37.0 C 01/02/17 08:00 Pulse 91 01/02/17 08:00 Resp 16 01/02/17 08:00 BP 125/62 01/02/17 08:00 Pulse Ox 97 01/02/17 08:00 Weight - most recent: 141 kg I&O - last 24 hours: Intake & Output 01/01/17 01/02/17 01/02/17 22:59 06:59 14:59 Intake Total 1258 400 Output Total 1025 500 Balance 233 -100 Med Orders - Current: Current Medications Lactated Ringer's (Ringers, Lactated) 1,000 mls @ 125 mls/hr IV ASDIRECTED [facility] Last Admin: 12/31/16 08:42 Dose: 125 mls/hr Morphine Sulfate (Morphine) 4 mg IVPUSH Q2H PRN PRN Reason: Pain (severe 7-10) Last Admin: 01/01/17 04:47 Dose: 4 mg Ondansetron HCl (Zofran) 4 mg IVPUSH Q6H PRN PRN Reason: Nausea/Vomiting Last Admin: 01/01/17 12:58 Dose: 4 mg Oxycodone/Acetaminophen (Percocet 325-5 Mg) 1 tab PO Q4H PRN PRN Reason: Pain (moderate 4-6) Last Admin: 01/02/17 04:29 Dose: 1 tab Oxycodone/Acetaminophen (Percocet 325-5 Mg) 2 tab PO Q4H PRN PRN Reason: Pain (moderate 4-6) Last Admin: 01/01/17 22:25 Dose: 2 tab Promethazine HCl (Phenergan) 25 mg IM Q6H PRN PRN Reason: Nausea/Vomiting Discontinued Medications Ephedrine Sulfate (Ephedrine Sulfate) Confirm Administered Dose 50 mg .ROUTE .STK-MED ONE Stop: 12/30/16 15:04 Fentanyl (Sublimaze) Confirm Administered Dose 100 mcg .ROUTE .STK-MED ONE Stop: 12/30/16 14:17 Fentanyl (Sublimaze) Confirm Administered Dose 100 mcg .ROUTE .STK-MED ONE Stop: 12/30/16 16:04 Fentanyl (Sublimaze) Confirm Administered Dose 100 mcg .ROUTE .STK-MED ONE Stop: 12/30/16 16:46 Last Admin: 12/30/16 17:31 Dose: Not Given Glycopyrrolate (Robinul) Confirm Administered Dose 1 mg .ROUTE .STK-MED ONE Stop: 12/30/16 15:53 Ketorolac Tromethamine (Toradol) 30 mg IVPUSH ONETIME ONE Stop: 12/30/16 16:21 Last Admin: 12/30/16 17:32 Dose: Not Given Ketorolac Tromethamine (Toradol) 30 mg IVPUSH Q6H PRN PRN Reason: Pain (severe 7-10) Stop: 01/04/17 16:22 Last Admin: 12/30/16 19:48 Dose: 30 mg Lidocaine (Xylocaine-Mpf 2%) Confirm Administered Dose 5 ml .ROUTE .STK-MED ONE Stop: 12/30/16 14:17 Morphine Sulfate (Morphine) 8 mg IVPUSH ONETIME ONE Stop: 12/30/16 11:45 Last Admin: 12/30/16 11:49 Dose: 8 mg Morphine Sulfate (Morphine) 5 mg IVPUSH Q4H PRN PRN Reason: Pain Last Admin: 12/30/16 13:58 Dose: 5 mg Morphine Sulfate (Morphine) Confirm Administered Dose 10 mg .ROUTE .STK-MED ONE Stop: 12/30/16 15:24 Neostigmine Methylsulfate (Neostigmine) Confirm Administered Dose 5 mg .ROUTE .STK-MED ONE Stop: 12/30/16 15:53 Octyl Cyanoacrylate (Dermabond Advance) Confirm Administered Dose 1 applic .ROUTE .STK-MED ONE Stop: 12/30/16 16:07 Ondansetron HCl (Zofran) 4 mg IVPUSH ONETIME ONE Stop: 12/30/16 13:46 Last Admin: 12/30/16 13:58 Dose: 4 mg Ondansetron HCl (Zofran) Confirm Administered Dose 4 mg .ROUTE .STK-MED ONE Stop: 12/30/16 16:03 Phenylephrine HCl (Phenylephrine In Ns 100 Mcg/Ml) Confirm Administered Dose 1 mg .ROUTE .STK-MED ONE Stop: 12/30/16 15:04 Phenylephrine HCl (Abilio-Synephrine) Confirm Administered Dose 10 mg .ROUTE .STK- MED ONE Stop: 12/30/16 15:27 Propofol (Diprivan 20 Ml) Confirm Administered Dose 200 mg .ROUTE .STK-MED ONE Stop: 12/30/16 14:17 Rocuronium Coin (Zemuron) Confirm Administered Dose 100 mg .ROUTE .STK-MED ONE Stop: 12/30/16 14:17 - Exam Wound/Incisions: healing well General: alert, oriented HEENT: Pupils equal Neck: supple Lungs: Clear to auscultation, Normal respiratory effort Cardiovascular: regular rate, regular rhythm Abdomen: bowel sounds present, soft, no tenderness, no distension Extremities: no edema Skin: warm, dry, intact Neurological: no new focal deficit Psy/Mental Status: alert, normal affect, normal mood - Problem List Review Problem List Initiated/Reviewed/Updated: Yes - My Orders Last 24 Hours: Medication Orders Lactated Ringer's (Ringers, Lactated) 1,000 mls @ 125 mls/hr IV ASDIRECTED [facility] Last Admin: 12/31/16 08:42 Dose: 125 mls/hr Infusion: 12/31/16 08:12 Dose: 125 mls/hr Admin: 12/31/16 00:12 Dose: 125 mls/hr Morphine Sulfate (Morphine) 4 mg IVPUSH Q2H PRN PRN Reason: Pain (severe 7-10) Last Admin: 01/01/17 04:47 Dose: 4 mg Admin: 12/31/16 20:58 Dose: 4 mg Admin: 12/31/16 10:59 Dose: 4 mg Admin: 12/30/16 18:40 Dose: 4 mg Ondansetron HCl (Zofran) 4 mg IVPUSH Q6H PRN PRN Reason: Nausea/Vomiting Last Admin: 01/01/17 12:58 Dose: 4 mg Admin: 01/01/17 04:55 Dose: 4 mg Admin: 12/31/16 17:18 Dose: 4 mg Oxycodone/Acetaminophen (Percocet 325-5 Mg) 1 tab PO Q4H PRN PRN Reason: Pain (moderate 4-6) Last Admin: 01/02/17 04:29 Dose: 1 tab Admin: 01/01/17 17:28 Dose: 1 tab Oxycodone/Acetaminophen (Percocet 325-5 Mg) 2 tab PO Q4H PRN PRN Reason: Pain (moderate 4-6) Last Admin: 01/01/17 22:25 Dose: 2 tab Admin: 01/01/17 12:55 Dose: 2 tab Admin: 01/01/17 05:48 Dose: 2 tab Admin: 12/31/16 18:57 Dose: 2 tab Admin: 12/31/16 13:06 Dose: 2 tab Admin: 12/31/16 07:59 Dose: 2 tab Admin: 12/31/16 03:56 Dose: 2 tab Admin: 12/30/16 22:51 Dose: 2 tab Promethazine HCl (Phenergan) 25 mg IM Q6H PRN PRN Reason: Nausea/Vomiting - Assessment Assessment (Free Text/Narrative):: Patient doing well on regular diet. Fetus is moving in the heart rate 131 no vaginal bleed. Uziel-Bobo drain is removed today - Plan Plan (Free Text/Narrative):: Patient will be sent home today the post laparotomy instruction is given to the patient prescription for Percocet 7.5/325 was given for the pain the patient to come to the office one week of her discharge for postoperative checkup
--- NOTE | 2017-01-02 10:06 | PCM.DCSUM1 ---
Discharge Summary - Discharge Data Discharge Date: 01/02/17 Discharge Disposition: Home, Self-Care 01 Condition: Good - Patient Instructions Diet: Usual Diet as Tolerated, Regular Diet as Tolerated Activity: As Tolerated Driving: Do Not Drive Showering/Bathing: May Shower, No Tub Bathing/Swimming Notify Provider of: Fever, Increased Pain, Swelling and Redness, Drainage, Nausea and/or Vomiting - Discharge Plan Prescriptions/Med Rec: oxyCODONE HCl/Acetaminophen [Percocet 7.5-325 mg Tablet] 1 each PO Q4H PRN #30 tablet PRN Reason: Pain Home Medications: Home Meds Pnv No.122/Iron/Folic Acid [ Multi Tablet] 1 each PO DAILY 10/14/16 [ History] oxyCODONE HCl/Acetaminophen [Percocet 7.5-325 mg Tablet] 1 each PO Q6H PRN #30 tablet 12/15/16 [Rx] oxyCODONE HCl/Acetaminophen [Percocet 7.5-325 mg Tablet] 1 each PO Q4H PRN #30 tablet 01/02/17 [Rx] Patient Handouts: Acetaminophen; Oxycodone tablets, Exploratory Laparotomy, Adult, Care After Referrals: Wolfgang Wilks MD [Physician] - 01/09/17 8:30 am - General Info Date of Service: 01/02/17 Functional Status: Reports: pain controlled - Review of Systems General: Reports: no symptoms HEENT: Reports: no symptoms Pulmonary: Reports: no symptoms Cardiovascular: Reports: no symptoms Gastrointestinal: Reports: No symptoms Genitourinary: Reports: no symptoms Musculoskeletal: Reports: no symptoms Skin: Reports: no symptoms Neurological: Reports: no symptoms Psychiatric: Reports: no symptoms - Patient Data Vitals - Most Recent: Last Vital Signs Temp 37.0 C 01/02/17 08:00 Pulse 91 01/02/17 08:00 Resp 16 01/02/17 08:00 BP 125/62 01/02/17 08:00 Pulse Ox 97 01/02/17 08:00 Weight - Most Recent: 141 kg I&O - Last 24 hours: Intake & Output 01/01/17 01/02/17 01/02/17 22:59 06:59 14:59 Intake Total 1258 400 Output Total 1025 500 Balance 233 -100 Med Orders - Current: Current Medications Lactated Ringer's (Ringers, Lactated) 1,000 mls @ 125 mls/hr IV ASDIRECTED [facility] Last Admin: 12/31/16 08:42 Dose: 125 mls/hr Morphine Sulfate (Morphine) 4 mg IVPUSH Q2H PRN PRN Reason: Pain (severe 7-10) Last Admin: 01/01/17 04:47 Dose: 4 mg Ondansetron HCl (Zofran) 4 mg IVPUSH Q6H PRN PRN Reason: Nausea/Vomiting Last Admin: 01/01/17 12:58 Dose: 4 mg Oxycodone/Acetaminophen (Percocet 325-5 Mg) 1 tab PO Q4H PRN PRN Reason: Pain (moderate 4-6) Last Admin: 01/02/17 04:29 Dose: 1 tab Oxycodone/Acetaminophen (Percocet 325-5 Mg) 2 tab PO Q4H PRN PRN Reason: Pain (moderate 4-6) Last Admin: 01/01/17 22:25 Dose: 2 tab Promethazine HCl (Phenergan) 25 mg IM Q6H PRN PRN Reason: Nausea/Vomiting Discontinued Medications Ephedrine Sulfate (Ephedrine Sulfate) Confirm Administered Dose 50 mg .ROUTE .STK-MED ONE Stop: 12/30/16 15:04 Fentanyl (Sublimaze) Confirm Administered Dose 100 mcg .ROUTE .STK-MED ONE Stop: 12/30/16 14:17 Fentanyl (Sublimaze) Confirm Administered Dose 100 mcg .ROUTE .STK-MED ONE Stop: 12/30/16 16:04 Fentanyl (Sublimaze) Confirm Administered Dose 100 mcg .ROUTE .STK-MED ONE Stop: 12/30/16 16:46 Last Admin: 12/30/16 17:31 Dose: Not Given Glycopyrrolate (Robinul) Confirm Administered Dose 1 mg .ROUTE .STK-MED ONE Stop: 12/30/16 15:53 Ketorolac Tromethamine (Toradol) 30 mg IVPUSH ONETIME ONE Stop: 12/30/16 16:21 Last Admin: 12/30/16 17:32 Dose: Not Given Ketorolac Tromethamine (Toradol) 30 mg IVPUSH Q6H PRN PRN Reason: Pain (severe 7-10) Stop: 01/04/17 16:22 Last Admin: 12/30/16 19:48 Dose: 30 mg Lidocaine (Xylocaine-Mpf 2%) Confirm Administered Dose 5 ml .ROUTE .STK-MED ONE Stop: 12/30/16 14:17 Morphine Sulfate (Morphine) 8 mg IVPUSH ONETIME ONE Stop: 12/30/16 11:45 Last Admin: 12/30/16 11:49 Dose: 8 mg Morphine Sulfate (Morphine) 5 mg IVPUSH Q4H PRN PRN Reason: Pain Last Admin: 12/30/16 13:58 Dose: 5 mg Morphine Sulfate (Morphine) Confirm Administered Dose 10 mg .ROUTE .STK-MED ONE Stop: 12/30/16 15:24 Neostigmine Methylsulfate (Neostigmine) Confirm Administered Dose 5 mg .ROUTE .STK-MED ONE Stop: 12/30/16 15:53 Octyl Cyanoacrylate (Dermabond Advance) Confirm Administered Dose 1 applic .ROUTE .STK-MED ONE Stop: 12/30/16 16:07 Ondansetron HCl (Zofran) 4 mg IVPUSH ONETIME ONE Stop: 12/30/16 13:46 Last Admin: 12/30/16 13:58 Dose: 4 mg Ondansetron HCl (Zofran) Confirm Administered Dose 4 mg .ROUTE .STK-MED ONE Stop: 12/30/16 16:03 Phenylephrine HCl (Phenylephrine In Ns 100 Mcg/Ml) Confirm Administered Dose 1 mg .ROUTE .STK-MED ONE Stop: 12/30/16 15:04 Phenylephrine HCl (Abilio-Synephrine) Confirm Administered Dose 10 mg .ROUTE .STK- MED ONE Stop: 12/30/16 15:27 Propofol (Diprivan 20 Ml) Confirm Administered Dose 200 mg .ROUTE .STK-MED ONE Stop: 12/30/16 14:17 Rocuronium [place] (Zemuron) Confirm Administered Dose 100 mg .ROUTE .STK-MED ONE Stop: 12/30/16 14:17 - Exam General: Reports: alert, oriented HEENT: Reports: Pupils equal, Pupils reactive, EOMI, Mucous membr. moist/pink Neck: Reports: supple Lungs: Reports: Clear to auscultation, Normal respiratory effort Cardiovascular: Reports: regular rate, regular rhythm Abdomen: Reports: bowel sounds present, soft, no tenderness, no distension (Female) Exam: Normal external exam, Normal speculum exam, Normal bimanual exam Rectal (Female) Exam: Normal Exam, Normal rectal tone Back Exam: Reports: normal inspection, full range of motion Extremities: Reports: no edema, normal pulses Skin: Reports: warm, dry, intact Wound/Incisions: Reports: healing well Neurological: Reports: no new focal deficit Psy/Mental Status: Reports: alert, normal affect, normal mood *Q Meaningful Use (DIS) - VTE *Q VTE Criteria *Q: - Stroke *Q Stroke Criteria *Q: - AMI *Q AMI Criteria *Q:
--- NOTE | 2017-01-02 15:29 | US ---
EXAM DATE: 12/30/16 PATIENT'S AGE: 31 Patient: GINA SOLIMAN Facility: [place], [place] Site . Site : 1985 Study: US OB Pelvis -12/30/2016 4:58:54 PM Ordering Physician: Efe Goss Final Report: INDICATION: post surgery baby check FINDINGS: A limited OB ultrasound shows a single live intrauterine . cardiac [id number] beats per minute and regular. The placenta appears intact. Dictated by Carter Sams MD @ 12/30/2016 5:13:24 PM Dictated by: Carter Sams MD @ 12/30/2016 17:13:34 (Electronic Signature) Report Signed by Proxy and Original Signed Document filed in the Medical Record. MTDShandra
--- NOTE | 2017-01-02 17:30 | US ---
EXAM DATE: 12/30/16 PATIENT'S AGE: 31 Patient: GINA SOLIMAN Facility: [place], [place] Site . Site : 1985 Study: US OB Pelvis -12/31/2016 11:29:10 AM Ordering Physician: Efe Goss Final Report: HISTORY: monitoring. TECHNIQUE: Limited obstetric ultrasound. COMPARISON: 12/30/2016. FINDINGS: There is a living single intrauterine gestation with a calculated gestational age based on ultrasound measurements of 19 weeks 5 days. This is concordant with clinical age. Estimated weight of 325 [address] the fetus at the 61st percentile. heart rate is 154 beats per minute. . Measurements: Biparietal diameter 4.5 cm 19 weeks, 4 days. Head circumference 17 cm 19 weeks, 4 days. Abdominal circumference 14.3 cm 19 weeks 5 days. Femur length 3.3 cm 20 weeks, 3 days. . There is a normal quantity amniotic fluid with an SHANNAN of 14.6. Breech presentation. Anterior placenta appears grossly unremarkable. The cervix is not optimally seen though is likely closed and normal in length. IMPRESSION: 1. Living single intrauterine gestation at 19 weeks, 5 days based on ultrasound measurements. This is concordant with clinical age. 2. Normal quantity amniotic fluid. Dictated by Fercho Mendoza MD @ 12/31/2016 11:55:38 AM Dictated by: Fercho Mendoza MD @ 12/31/2016 11:56:17 (Electronic Signature) Report Signed by Proxy and Original Signed Document filed in the Medical Record. RAVI
== END 2017-01-02 10:30 | disposition home or self-care (01) | DRG 781 ==
LOC: MW.ED 10:50 → MW.MS 12:01
PROVIDERS: ADMIT Obstetrics & Gynecology; ATTEND Obstetrics & Gynecology
PROC: 0UT60ZZ Resection of Left Fallopian Tube, Open Approach (ICD-10-PCS; principal; 2016-12-30)
PROC: 0UT10ZZ Resection of Left Ovary, Open Approach (ICD-10-PCS; 2016-12-30)
PROC: 0UQ90ZZ Repair Uterus, Open Approach (ICD-10-PCS; 2016-12-30)
DX: O34.82 Maternal care for other abnormalities of pelvic organs, second trimester (principal); O26.892 Other specified pregnancy related conditions, second trimester; N83.522 Torsion of left fallopian tube; S37.63XA Laceration of uterus, initial encounter; O99.212 Obesity complicating pregnancy, second trimester; Y92.234 Operating room of hospital as the place of occurrence of the external cause; Z3A.20 20 weeks gestation of pregnancy; Z91.040 Latex allergy status; Z79.899 Other long term (current) drug therapy; X58.XXXA Exposure to other specified factors, initial encounter
CPT/HCPCS: 00840; 36415; 76815; 76815-26; 76856; 76856-26; 80048; 80053; 82150; 83690; 85025; 86850; 86900; 86901; 88307; 96374; 99285; 99285-25; A9270-GY; J1885; J2270; J2370; J2405; J2704; J2710; J3010; J7120

== ENCOUNTER 2017-01-03 02:25 | Outpatient (CLI) | payer OTHER ==
[2017-01-03] MEDS: Acetaminophen/oxyCODONE 325-7.5 MG Tab PO PRN ×2 (06:13→11:12)
--- NOTE | 2017-01-03 15:00 | US ---
EXAM DATE: 01/03/17 PATIENT'S AGE: 32 Patient: GINA SOLIMAN Facility: [place], [place] Site Site : 1985 Study: US OB Pelvis -01/03/2017 3:56:53 AM Ordering Physician: Efe Goss Final Report: INDICATION: BLEEDING, UNABLE TO FIND HEART RATE TECHNIQUE: OB ultrasound. COMPARISON: December 31, 2016. FINDINGS: Single live intrauterine with cardiac activity recorded at 132 beats per minute. The placenta is anterior in location. The SHANNAN was calculated at 9.34. parameters: Biparietal diameter 5 cm with an estimated sonographic gestational age of 21 weeks 1 day. Head circumference 19.6 cm with an estimated sonographic gestational age of 21 weeks 0 days. Abdominal circumference 15.6 cm with an estimated sonographic gestational age of 20 weeks 6 days. Composite sonographic gestational age measures 21 weeks 1 day. Estimated weight is 386 g+/-56 g and is within the 86 percentile. IMPRESSION: 1. Single live intrauterine with cardiac activity recorded at 132 beats per minute. The composite sonographic gestational age measures 21 weeks 1 day. There has been appropriate interval growth compared with the previous examination. 2. The SHANNAN is within the 5th percentile. Dictated by Stephane Chadwick MD @ 01/03/2017 4:13:42 AM Dictated by: Stephane Chadwick MD @ 01/03/2017 04:13:56 (Electronic Signature) Report Signed by Proxy and Original Signed Document filed in the Medical Record. RAVI
--- NOTE | 2017-01-04 14:21 | CONS ---
DATE OF CONSULTATION: DATE OF : 1985 PRIMARY CARE PHYSICIAN: None PCP She is 32-year-old patient. She is para 2-0-0-2. She is 19 to 20 weeks . She is status post exploratory laparotomy and left salpingo- oophorectomy for a torsion of an ovarian cyst. Four days ago, the patient was discharged home, yesterday in stable general condition. However, she is today presented to Labor and Delivery, complaining that she is leaking fluid and with a possibility of rupture of membrane. The patient had an OB ultrasound, which shows consistent with 19-20 weeks with cardiac activity and decreased amniotic fluid comparing to her previous ultrasound which was done a few years back. Her vital sign was essentially normal, and she was afebrile. Her CBC was normal. I did a speculum examination on the patient. There is some evidence of leaking of fluid. I did an AmniSure test and later on became positive, so it is confirmed possible either high leak or spontaneous rupture of the membrane. I presented the fact to the patient and her family at 19 to 20 weeks, there is very minimal survival if she continues to have leaking of fluid, but I am hoping that this is a high leak and it is where the leaking was stopped. We discussed plan of action and my plan is to put her on bedrest at home. Start her on antibiotic amoxicillin 500 mg p.o. daily, and we will follow her in the office. I am planning to see her sometime next week in 3-4 days and repeat her ultrasound and then assess her fluid and the fetus. I also instructed the patient if she started having contraction or further bleeding, then she can come to Labor and Delivery. ANN MARIE / APOLINAR /[id number]
== END 2017-01-03 14:10 | disposition home or self-care (01) ==
LOC: MW.OBCHECK 02:25 → MW.OB 02:27 → MW.OBCHECK 14:10
PROVIDERS: ATTEND Obstetrics & Gynecology
DX: O42.912 Preterm premature rupture of membranes, unspecified as to length of time between rupture and onset of labor, second trimester (principal); O26.852 Spotting complicating pregnancy, second trimester; Z3A.21 21 weeks gestation of pregnancy; Z90.721 Acquired absence of ovaries, unilateral; Z98.890 Other specified postprocedural states
CPT/HCPCS: 36415; 76805; 76805-26; 84112; 85025